=== PATIENT | male | born 1960 | race Caucasian/White ===

== ENCOUNTER 2025-02-25 06:04 | Day surgery (SDC) | payer MEDICARE ==
[2025-02-22 10:23] VITALS: BMI 31.0
[2025-02-25] MEDS ORDERED: CEFAZOLIN 2 GM VIAL ONE (06:42)
[2025-02-25] MEDS ORDERED: Bupivacaine/Epinephrine 0.25% 30 ML VIAL ONE (06:42)
[2025-02-25] MEDS ORDERED: Lidocaine 1% PF 5 ML VIAL ONE (07:05)
[2025-02-25] MEDS ORDERED: PROPOFOL 20 ML ONE (07:05)
[2025-02-25] MEDS ORDERED: Rocuronium Bromide 10 MG/ML (10ML VIAL) ONE (07:05)
[2025-02-25] MEDS ORDERED: Glycopyrrolate 0.2 MG/ML 5 ML SYRINGE ONE (07:49)
[2025-02-25] MEDS ORDERED: SUGAMMADEX SODIUM 200 MG/2 ML VIAL ONE ×2 (08:35→09:45)
[2025-02-25] MEDS ORDERED: Ondansetron PF 4 MG/2 ML Vial ONE ×2 (08:35→09:45)
[2025-02-25] MEDS ORDERED: HYDROcodone/Acetaminophen 5/325 mg Tablet ONE (09:47)
== END 2025-02-25 10:15 | disposition home or self-care (01) ==
LOC: CSHSDC 06:04
PROVIDERS: ATTEND Surgery
PROC: 0YQA4ZZ Repair Bilateral Inguinal Region, Percutaneous Endoscopic Approach (ICD-10-PCS; principal; 2025-02-25)
DX: K40.20 Bilateral inguinal hernia, without obstruction or gangrene, not specified as recurrent (principal); Z88.0 Allergy status to penicillin
CPT/HCPCS: 49650; C1781 ×2; J1100; J2405; J2704; J3010; S2900